=== PATIENT | male | born 1960 | race Caucasian/White ===

== ENCOUNTER 2016-05-18 13:00 | Day surgery (SDC) | payer BC ==
[2016-05-18] MEDS ORDERED: PROPOFOL 10 MG/ML VIAL IV ONE (14:00)
[2016-05-18] MEDS ORDERED: MIDAZOLAM HCL 2MG/2ML VIAL IV ONE (14:00)
[2016-05-18] MEDS ORDERED: LIDOCAINE 2% MDV (20MG/ML) 20ML VIAL IV ONE (14:00)
--- NOTE | 2016-05-22 15:39 | Operative Note ---
DATE OF SURGERY: 05/18/2016. REFERRING PHYSICIAN: Eleazar Del Valle D.O. PROCEDURE: Colonoscopy to the cecum. INDICATION: Colorectal cancer screening. ANESTHESIA: Intravenous sedation was administered by the Department of Anesthesiology and included Diprivan titrated to effect. PROCEDURE: Following informed consent from this alert individual, including a discussion of the risks and benefits of the procedure and an opportunity for the patient to ask questions, the patient was in the left lateral decubitus position. A digital rectal examination was performed. No abnormalities were noted. Following this, the Olympus PCF-180 video colonoscope was inserted into the rectum without resistance. The rectal mucosa had a normal appearance with normal folds and distensibility. The colonoscope was advanced up through the colon to the level of the cecum without much difficulty. Throughout the bowel, the mucosa appeared normal, folds were normal, and the bowel was fairly distensible. There were scattered diverticula noted in the sigmoid colon. The cecum was well defined by noting the appendiceal orifice and ileocecal valve. The terminal ileum was briefly cannulated as well and was found to be unremarkable. The colon preparation was good. From the base of the cecum, the colonoscope was then withdrawn. No additional abnormalities were detected until the rectum was reached. Retroflexion in the rectum revealed moderate- sized internal hemorrhoids. The endoscope was straightened and removed. The patient tolerated the procedure well and was returned to the recovery area in stable condition. IMPRESSION: 1. Sigmoid diverticulosis, mild. 2. Medium-sized internal hemorrhoids. RECOMMENDATIONS: The patient was advised to have a screening colonoscopy in ten years' time or sooner if problems arise. Follow up will be with Dr. Marcus Del Valle. MIGDALIA VANG D.O. Date Time JOB NUMBER: [id number] cc: Mariela Reyes
== END 2016-05-18 15:00 | disposition home or self-care (01) ==
LOC: HOP 13:00
PROVIDERS: ATTEND Internal Medicine Gastroenterology
DX: Z12.11 Encounter for screening for malignant neoplasm of colon (principal); K57.30 Diverticulosis of large intestine without perforation or abscess without bleeding; K64.8 Other hemorrhoids; I10 Essential (primary) hypertension

== ENCOUNTER 2017-08-30 16:24 | Emergency (ER) | payer BC ==
[2017-08-30] MEDS ORDERED: PROCHLORPERAZINE 10 MG/2 ML VIAL IVP PRN (17:14)
[2017-08-30] MEDS ORDERED: DIPHENHYDRAMINE HCL 50 MG/ML VIAL IVP ONE (17:15)
--- NOTE | 2017-08-30 17:51 | Emergency Department Record ---
History of Present Illness - General Chief Complaint: Headache Migraine Stated Complaint: HEADACHE Time Seen by Provider: 08/30/17 16:55 Source: Patient Mode of Arrival: Wheelchair Limitations: No limitations - History of Present Illness Initial Comments: Pt with from home with complaint of ASKEW for one week. Constant but varies in intesnity. Retrobulbar bilateral with pressure behind eyes. Scalp feels tingles. Subjective fever "every night". Taking tylenol with minimal relef of pain. Eyes are "hard to focus", no photophobia. +nausea without vomiting. No hx of migraine, non smoker, no temporal pains. No change in taste or facial sensation. No neck or back pains. No change in speech. No weakness. Not a "ASKEW " patient. MD Complaint: Headache Onset/Timin -: Days(s) Onset Description: Sudden Location: Diffuse, Frontal, Retro-orbital Severity: Moderate Severity scale (1-10): 6 Quality: Aching, Throbbing, Different than previous headaches Consistency: Constant Improves With: Nothing Worsens With: None, Light Associated Symptoms: Fever, Nausea, Photophobia, Sensitivity to sound Treatments Prior to Arrival: None - Related Data Allergies Allergy/AdvReac Type Severity Reaction Status Date / Time No Known Drug Allergies Allergy Unverified 08/30/17 15:43 Travel Screening - Travel/Exposure Within Last 30 Days Have you traveled within the last 30 days?: No Past Medical History - SOCIAL HISTORY Smoking Status: Never smoker Alcohol Use: None Drug Use: None - RESPIRATORY Hx Respiratory Disorders: No - CARDIOVASCULAR Hx Cardio Disorders: Yes Hx Hypertension: Yes - NEURO Hx Neuro Disorders: No - GI Hx GI Disorders: No - Hx Genitourinary Disorders: Yes Hx Kidney Stones: Yes (10 years ago) - ENDOCRINE Hx Endocrine Disorders: No - MUSCULOSKELETAL Hx Musculoskeletal Disorders: No - PSYCH Hx Psych Problems: No - HEMATOLOGY/ONCOLOGY Hx Hematology/Oncology Disorders: No Family Medical History Any Significant Family History?: No Course Vital Signs 08/30/17 16:39 Temperature 99.0 F Pulse Rate 83 Respiratory 20 Rate Blood Pressure 158/101 Pulse Ox 97 - Reevaluation(s) Reevaluation #1: 08/30/17 19:10 Pt without relief fro mCompazine/benadryl. Temp 100.2 po. Given Dilaudid 1mg with total relief of ASEKW. Up in room without pain. Discussed at length with patient and importance of follow up with PMD> If not 100% better in AM they will recheck here with me. The agree and are comfortable with that plan. Disposition Disposition: Discharge Clinical Impression: Headache, Elevated blood pressure reading Disposition: Home, Self-Care Condition: (2) Stable Instructions: Acute Headache (ED) Additional Instructions: Continue your Augmentin for the Dog Bite til complete. Recheck your blood pressure tomorrow with you family doctor tomorrow. If your headache continues or worse tomorrow return to see Dr. Campa in the ER. Take tylenol or Motrin as needed for headache. Forms: Patient Portal Access Quality - Quality Measures Quality Measures: Headache (All Ages) - Headache: Neuroimaging Quality Measure: Measure #419: Overuse of Neuroimaging Neurological Exam: Patient had a normal neurological exam. [G9535] Headache: Use of Neuroimaging: CTA, CT, MRA or MRI Ordered w/Medical Reason [ G9536] Medical Reason for Exam: Change in Type of Headache - Blood Pressure Screening Does Patient Have Any of the Following: No Blood Pressure Classification: Hypertensive Reading Systolic Measurement: 158 Diastolic Measurement: 101 Screening for High Blood Pressure: < Pre-Hypertensive BP, F/U Documented > [ G8950] Pre-Hypertensive Follow-up Interventions: Lifestyle modifications., Referral to alternative/primary care provider. Lifestyle Modification: Dietary Sodium Restriction
[2017-08-30] MEDS ORDERED: HYDROMORPHONE HCL 2 MG/ML VIAL IVP ONE (18:33)
[2017-08-30] MEDS ORDERED: ACETAMINOPHEN 500 MG TABLET PO ONE (18:33)
--- NOTE | 2017-08-31 20:22 | CT SCAN REPORT ---
EXAM: CT SCAN HEAD WO CONTRAST TECHNIQUE: Standard noncontrast axial images with coronal and sagittal postprocessed images obtained. INDICATION: Headache. COMPARISONS: None. ENCOUNTER: Initial. RIGHT OR LEFT HANDED: Unknown. FINDINGS: The calvarium displays no evidence of soft tissue swelling or hematoma. The calvarium displays no evidence of fracture. I do not see bony destructive process or periosteal reactions. I do not see evidence of abnormal extraaxial fluid collections to suggest hemorrhage. I do not see evidence of mass, mass effect, or midline shift. The white matter/ black matter junctions appear intact. There is no evidence of intraventricular blood or subarachnoid blood. There is mild tortuosity of the basilar artery. There is atherosclerosis of the intracranial circulation. The venous sinuses display no evidence of expansion or asymmetric hyperattenuation. I do not see evidence of asymmetric hypoattenuation to suggest acute infarction. IMPRESSIONS: I DO NOT SEE ACUTE PROCESS WITHIN THE BRAIN. NO EVIDENCE OF MASS, HEMORRHAGE, OR EDEMA. IF THERE IS STRONG CLINICAL CONCERN FOR SUBTLE INFARCT OR OTHER ACUTE PROCESS, MRI EXAMINATION IS ADVISED. JOB NUMBER: [id number] [facility]
== END 2017-08-30 19:27 | disposition home or self-care (01) ==
LOC: ER 16:24
DX: R51 Headache (principal); I10 Essential (primary) hypertension; R11.0 Nausea; R50.9 Fever, unspecified; R20.2 Paresthesia of skin
CPT/HCPCS: 99284 ×2; 96374; 96375; 70450; J1170; J0780; J1200

== ENCOUNTER 2017-09-17 18:53 | Observation (INO) | payer BC ==
[2017-09-17] MEDS ORDERED: ONDANSETRON HCL IV 4 MG/2 ML VIAL IVP ONE (19:10)
[2017-09-17] MEDS ORDERED: 0.9 % SODIUM CHLORIDE 1000ML 1,000 ML IV SCH (19:15)
--- NOTE | 2017-09-17 19:15 | Emergency Department Record ---
History of Present Illness - General Stated complaint: VOMITING Time Seen by Provider: 09/17/17 19:10 Source: Patient Mode of Arrival: Ambulatory Limitations: No limitations - History of Present Illness Initial comments: 56 yo male presents to ED for evaluation of nausea/vomiting for approximately 1 week following release from [facility] following treatment for viral meningitis. Patient denies fevers, chills, or abdominal pain symptoms, but does report mild headache symptoms (3.5/10 currently). Patient reports that he had been taking phenergan without improvement in his symptoms. Patient reports that he is concerned about possible dehydration. MD complaint: Nausea, Vomiting Onset/Timin -: Week(s) Description of Vomiting: Bilious Associated Abdominal Pain: No Radiation: None Severity: Moderate Consistency: Intermittent Improves with: None Worsens with: Eating Associated Symptoms: Denies other symptoms - Related Data Home Medications Medication Instructions Recorded Confirmed Last Taken Chlorthalidone 25 mg PO DAILY 09/17/17 09/17/17 09/17/17 Allergies Allergy/AdvReac Type Severity Reaction Status Date / Time No Known Drug Allergies Allergy Unverified 08/30/17 15:43 Review of Systems Constitutional: Denies: Chills, Fever, Malaise, Night sweats Eyes: Denies: Eye discharge, Eye pain ENT: Denies: Congestion, Ear pain, Epistaxis Respiratory: Denies: Cough, Dyspnea Cardiovascular: Denies: Chest pain, Dyspnea on exertion Endocrine: Denies: Fatigue, Heat or cold intolerance Gastrointestinal: Reports: Nausea, Vomiting. Denies: Abdominal pain Genitourinary: Denies: Incontinence, Retention Musculoskeletal: Denies: Arthralgia, Back pain, Gout, Joint swelling Skin: Denies: Bruising, Change in color Neurological: Reports: Headache. Denies: Abnormal gait, Confusion, Seizure Psychiatric: Denies: Anxiety Hematological/Lymphatic: Denies: Anemia, Blood Clots Past Medical History - SOCIAL HISTORY Smoking Status: Never smoker Drug Use: None - RESPIRATORY Hx Respiratory Disorders: No - CARDIOVASCULAR Hx Cardio Disorders: Yes Hx Hypertension: Yes - NEURO Hx Neuro Disorders: No - GI Hx GI Disorders: No - Hx Genitourinary Disorders: Yes Hx Kidney Stones: Yes (10 years ago) - ENDOCRINE Hx Endocrine Disorders: No - MUSCULOSKELETAL Hx Musculoskeletal Disorders: No - PSYCH Hx Psych Problems: No - HEMATOLOGY/ONCOLOGY Hx Hematology/Oncology Disorders: No Physical Exam - General General Appearance: Alert, Oriented x3, Cooperative, Moderate distress Limitations: No limitations - Head Head exam: Atraumatic, Normocephalic, Normal inspection Head exam detail: negative: Abrasion, Contusion, Lee's sign, General tenderness, Hematoma, Laceration - Eye Eye exam: Normal appearance. negative: Conjunctival injection, Periorbital swelling, Periorbital tenderness, Scleral icterus - ENT Ear exam: negative: Auricular hematoma, Auricular trauma Nasal Exam: negative: Active bleeding, Discharge, Dried blood, Foreign body Mouth exam: negative: Drooling, Laceration, Muffled voice, Tongue elevation - Neck Neck exam: Normal inspection, Other (No meningeal signs on examination.). negative: Meningismus, Tenderness - Respiratory Respiratory exam: Normal lung sounds bilaterally. negative: Rales, Respiratory distress, Rhonchi, Stridor - Cardiovascular Cardiovascular Exam: Regular rate, Normal rhythm, Normal heart sounds - GI/Abdominal GI/Abdominal exam: Soft. negative: Rebound, Rigid, Tenderness - Rectal Rectal exam: Deferred - exam: Deferred - Extremities Extremities exam: Normal inspection. negative: Calf tenderness, Pedal edema, Tenderness - Back Back exam: Denies: CVA tenderness (R), CVA tenderness (L) - Neurological Neurological exam: Alert, Normal gait, Oriented X3 - Psychiatric Psychiatric exam: Normal affect, Normal mood - Skin Skin exam: Normal color. negative: Abrasion Type of lesion: negative: abrasion Course - Reevaluation(s) Reevaluation #1: 09/17/17 20:32 Labs reviewed: K 2.5 Na 126 CL 83 Patient was updated on all results, reports improvement in his nausea/vomiting symptoms as well following Zofran. IV and oral potassium were ordered as well as 2 grams Magnesium. Will admit for further evaluation. Case was discussed with Majo (admitting PA) will accept admission at this time. Medical Decision Making - Lab Data Result diagrams: 09/17/17 19:30 09/17/17 19:30 Disposition Disposition: Admit Clinical Impression: Hypokalemia Nausea & vomiting Qualifiers: Vomiting type: unspecified Vomiting Intractability: non-intractable Qualified Code(s): R11.2 - Nausea with vomiting, unspecified Disposition: / Decision to Admit: Admit from ER Decision to Admit Date: 09/17/17 Decision to Admit Time: 20:36 Condition: (2) Stable Time of Disposition: 20:36 Quality - Quality Measures Quality Measures: N/A - Blood Pressure Screening Does Patient Have Any of the Following: No Blood Pressure Classification: Hypertensive Reading Systolic Measurement: 160 Diastolic Measurement: 96 Screening for High Blood Pressure: < First Hypertensive BP, F/U Documented > [ G8950] First Hypertensive Follow-up Interventions: Referral to alternative/primary care provider.
[2017-09-17 19:48] LABS: BASO % 0.2 % (0-6); GRAN % 75.8 % (47-80); HEMATOCRIT 43.4 % (42.0-52.0); HEMOGLOBIN 15.6 gm/dl (14.0-18.0); LYMPH % 10.4 % (16-45); MEAN CELL VOLUME 82.7 fl (81-97); MEAN CORPUSCULAR HEMOGLOBIN 29.7 pg (27-33); MEAN CORPUSCULAR HGB CONC 35.9 g/dl (32-36); MEAN PLATELET VOLUME 9.3 fl (7.4-10.4); MONO % 12.6 % (0-9); PLATELET COUNT 359 K/uL (130-400); RED BLOOD COUNT 5.25 M/uL (4.40-5.70); RED CELL DISTRIBUTION WIDTH 12.8 % (11.5-14.5)
[2017-09-17 20:03] LABS: URINE APPEARANCE CLEAR; URINE BILIRUBIN NEGATIVE (NEGATIVE); URINE BLOOD NEGATIVE (NEGATIVE); URINE COLOR YELLOW; URINE GLUCOSE (UA) NEGATIVE (NEGATIVE); URINE KETONE NEGATIVE (NEGATIVE); URINE LEUKOCYTE ESTERASE NEGATIVE (NEGATIVE); URINE NITRITE NEGATIVE (NEGATIVE); URINE PROTEIN NEGATIVE (NEGATIVE)
[2017-09-17 20:06] LABS: BLOOD UREA NITROGEN 14 mg/dL (6-20); CREATININE 0.8 mg/dL (0.7-1.2); EST GLOMERULAR FILTRATION RATE > 60 mL/min
[2017-09-17 20:08] LABS: GLUCOSE,RANDOM 144 mg/dL (74-109)
[2017-09-17 20:11] LABS: ALB/GLOB RATIO 1.8 (1.1-1.8); ALBUMIN 4.5 g/dL (4.0-5.0); ALKALINE PHOSPHATASE 79 U/L (40-129); ALT/SGPT 22 U/L (<41); AST/SGOT 10 U/L (10.0-50.0); LIPASE 73 U/L (13-60)
[2017-09-17] MEDS ORDERED: SOD CHLOR 0.9% WITH KCL 40MEQ 40 MEQ/1,000 ML IV.SOLN IV ONE (20:28)
[2017-09-17] MEDS ORDERED: POTASSIUM BICARB./CIT AC 25 MEQ EFF.TAB PO STA (20:28)
[2017-09-17] MEDS ORDERED: MAGNESIUM SULFATE 16 MEQ in 0.9 % SODIUM CHLORIDE 100ML 100 ML IV ONE (20:28)
[2017-09-17] MEDS ORDERED: 0.9 % SODIUM CHLORIDE 1000ML 1,000 ML IV PRN (22:24)
[2017-09-17] MEDS ORDERED: ONDANSETRON HCL IV 4 MG/2 ML VIAL IVP PRN (22:24)
[2017-09-18] MEDS: ACETAMINOPHEN 500 MG TABLET PO PRN ×2 (01:14→09:16)
[2017-09-18 06:55] LABS: BLOOD UREA NITROGEN 11 mg/dL (6-20); CREATININE 0.8 mg/dL (0.7-1.2); EST GLOMERULAR FILTRATION RATE > 60 mL/min; GLUCOSE,RANDOM 93 mg/dL (74-109)
[2017-09-18] MEDS ORDERED: CHLORTHALIDONE 25 MG TABLET PO SCH (10:00)
[2017-09-18] MEDS ORDERED: ONDANSETRON 4 MG ODT TABLET SL PRN (11:16)
--- NOTE | 2017-09-18 11:27 | History & Physical ---
History of Present Illness - Date of Service Date of Service for History & Physical: 09/18/17 - History of Present Illness Admitting Diagnosis: Nausea/Vomiting. Severe hypokalemia History of Present Illness: Mr. Frias is a 56 year-old male who presented to the ED on 09/16/17 with complaint of nausea and vomiting that had persisted for 1 week following release from [facility] where he was admitted for viral meningitis. He states that he had been feeling ill since 08/26/27 and lost 28 pounds. Patient denied fevers, chills, or abdominal pain symptoms, but did report mild headache symptoms (3.5/10). Patient reported that he had been taking phenergan without improvement in his symptoms. His history includes recent viral meningitis infection, HTN, and renal stone 10 years ago. In the ED, his vital signs were stable. His labs revealed K 2.5, Na 126, Cl 83. 16gm of mag sulfate and 50 mEq of K-lyte was initiated in the ED, and pt. was started on K Cloride 40 mEq at 125/hr. His nausea improved with IV zofran. Pt. was admitted for observation for rehydration and electrolyte replacement. 09/18/17 0930: Pt. is resting in bed. He reports feeling much improved since yesterday. He does complain of a headache- 3/10, but he states that his headache is unchanged from previous. (same since discharge with viral meningitis diagnosis)- treating with PO tylenol. His vitals remain stable and his labs have significantly improved: K 3.7 and Na 130. He remains in NSR on tele. Will plan to continue IV fluids and recheck labs at 1200, including a magnesium level. Zofran changed to PO and will advance to full liquid for lunch. Will consider d/c this afternoon if labs within normal range and pt's nausea controlled, tolerating advancing diet. Travel Screening - Travel/Exposure Within Last 30 Days Have you traveled within the last 30 days?: No - Travel/Exposure Within Last Year Have you traveled outside the [place] in the last year?: No - Additonal Travel Details Have you been exposed to anyone with a communicable illness?: No - Travel Symptoms Symptom Screening: None Review of Systems Constitutional: Denies: Chills, Fever, Malaise, Night sweats Eyes: Denies: Eye discharge, Eye pain ENT: Denies: Congestion, Ear pain, Epistaxis Respiratory: Denies: Cough, Dyspnea Cardiovascular: Denies: Chest pain, Dyspnea on exertion Endocrine: Denies: Fatigue, Heat or cold intolerance Gastrointestinal: Reports: Nausea, Vomiting. Denies: Abdominal pain Genitourinary: Denies: Incontinence, Retention Musculoskeletal: Denies: Arthralgia, Back pain, Gout, Joint swelling Skin: Denies: Bruising, Change in color Neurological: Reports: Headache. Denies: Abnormal gait, Confusion, Seizure Psychiatric: Denies: Anxiety Hematological/Lymphatic: Denies: Anemia, Blood Clots Past Medical History - SOCIAL HISTORY Smoking Status: Never smoker Alcohol Use: None Drug Use: None - RESPIRATORY Hx Respiratory Disorders: No - CARDIOVASCULAR Hx Cardio Disorders: Yes Hx Hypertension: Yes - NEURO Hx Neuro Disorders: No - GI Hx GI Disorders: No - Hx Genitourinary Disorders: Yes Hx Kidney Stones: Yes (10 years ago) - ENDOCRINE Hx Endocrine Disorders: No - MUSCULOSKELETAL Hx Musculoskeletal Disorders: No - PSYCH Hx Psych Problems: No - HEMATOLOGY/ONCOLOGY Hx Hematology/Oncology Disorders: No Family Medical History Any Significant Family History?: No H&P Meds/Allergies - Allergies Allergies: Allergies Allergy/AdvReac Type Severity Reaction Status Date / Time No Known Drug Allergies Allergy Unverified 08/30/17 15:43 - Home Medications Home Medications Medication Instructions Recorded Confirmed Last Taken Chlorthalidone 25 mg PO DAILY 09/17/17 09/17/17 09/17/17 - Active Medications Active Medications: Current Medications Acetaminophen (Tylenol 500mg Tab) 1,000 mg PO Q6H PRN PRN Reason: PAIN - MILD(1-4)/FEVER Last Admin: 09/18/17 09:16 Dose: 1,000 mg Chlorthalidone (Chlorthalidone) 25 mg PO DAILY CRYSTAL Sodium Chloride () 1,000 mls @ 100 mls/hr IV .Q10H PRN PRN Reason: LARGE VOLUME IV Last Admin: 09/18/17 06:15 Dose: 100 mls/hr Ondansetron HCl (Zofran Odt) 4 mg SL Q8H PRN PRN Reason: NAUSEA/VOMITING Physical Exam - Vital Signs Vital Signs: Vital Signs - Last 24 Hrs Temp Pulse Pulse Pulse Resp BP BP 09/18/17 09:35 98.4 F 70 16 09/18/17 09:00 60 16 07/28/18 06:24 97.7 F 53 L 58 L 12 09/18/17 00:02 69 16 09/17/17 22:24 98.2 F 69 16 09/17/17 21:52 68 16 133/94 09/17/17 20:38 62 16 09/17/17 19:17 97.9 F 65 16 160/96 09/17/17 19:14 97.9 F 67 16 160/96 BP Pulse Ox 09/18/17 09:35 128/84 96 09/18/17 09:00 09/18/17 06:24 124/86 98 09/18/17 00:02 09/17/17 22:24 149/95 95 09/17/17 21:52 98 09/17/17 20:38 150/101 98 09/17/17 19:17 97 09/17/17 19:14 98 - General General Appearance: Alert, Oriented x3, Cooperative, No acute distress Limitations: No limitations - Head Head exam: Atraumatic, Normocephalic, Normal inspection Head exam detail: negative: Abrasion, Contusion, Lee's sign, General tenderness, Hematoma, Laceration - Eye Eye exam: Normal appearance. negative: Conjunctival injection, Periorbital swelling, Periorbital tenderness, Scleral icterus - ENT Ear exam: negative: Auricular hematoma, Auricular trauma Nasal Exam: negative: Active bleeding, Discharge, Dried blood, Foreign body Mouth exam: negative: Drooling, Laceration, Muffled voice, Tongue elevation - Neck Neck exam: Normal inspection, Other (No meningeal signs on examination.). negative: Meningismus, Tenderness - Respiratory Respiratory exam: Normal lung sounds bilaterally. negative: Rales, Respiratory distress, Rhonchi, Stridor - Cardiovascular Cardiovascular Exam: Regular rate, Normal rhythm, Normal heart sounds - GI/Abdominal GI/Abdominal exam: Soft. negative: Rebound, Rigid, Tenderness - Rectal Rectal exam: Deferred - exam: Deferred - Extremities Extremities exam: Normal inspection. negative: Calf tenderness, Pedal edema, Tenderness - Back Back exam: Denies: CVA tenderness (R), CVA tenderness (L) - Neurological Neurological exam: Alert, Normal gait, Oriented X3 - Psychiatric Psychiatric exam: Normal affect, Normal mood - Skin Skin exam: Normal color. negative: Abrasion Type of lesion: negative: abrasion Results - Labs Result Diagrams: 09/17/17 19:30 09/18/17 06:10 Labs Last 24 Hours: Laboratory Results - last 24 hr 09/17/17 09/17/17 09/17/17 19:10 19:30 19:30 WBC 9.0 RBC 5.25 Hgb 15.6 Hct 43.4 MCV 82.7 MCH 29.7 MCHC 35.9 RDW 12.8 Plt Count 359 MPV 9.3 Gran % 75.8 Lymphocytes % 10.4 L Monocytes % 12.6 H Eosinophils % 1.0 Basophils % 0.2 Sodium 126 L Potassium 2.5 L* Chloride 83 L Carbon Dioxide 28.0 Anion Gap 15.0 BUN 14 Creatinine 0.8 Estimated GFR > 60 Random Glucose 144 H Calcium 9.3 Total Bilirubin 0.60 AST 10 ALT 22 Alkaline Phosphatase 79 Total Protein 7.0 Albumin 4.5 Globulin 2.5 Albumin/Globulin Ratio 1.8 Lipase 73 H Urine Color Yellow Urine Appearance Clear Urine pH 6.0 Ur Specific [place] 1.015 Urine Protein Negative Urine Glucose (UA) Negative Urine Ketones Negative Urine Blood Negative Urine Nitrite Negative Urine Bilirubin Negative Urine Urobilinogen 1.0 Ur Leukocyte Esterase Negative 09/18/17 09/18/17 06:00 06:10 WBC RBC Hgb Hct MCV MCH MCHC RDW Plt Count MPV Gran % Lymphocytes % Monocytes % Eosinophils % Basophils % Sodium Cancelled 135 L Potassium Cancelled 3.7 Chloride Cancelled 96 L Carbon Dioxide Cancelled 26.0 Anion Gap Cancelled 13.0 BUN Cancelled 11 Creatinine Cancelled 0.8 Estimated GFR Cancelled > 60 Random Glucose Cancelled 93 Calcium Cancelled 8.8 Total Bilirubin AST ALT Alkaline Phosphatase Total Protein Albumin Globulin Albumin/Globulin Ratio Lipase Urine Color Urine Appearance Urine pH Ur Specific [place] Urine Protein Urine Glucose (UA) Urine Ketones Urine Blood Urine Nitrite Urine Bilirubin Urine Urobilinogen Ur Leukocyte Esterase VTE H&P Assessment - Risk for VTE Risk for VTE: Yes Risk Level: Low Risk Assessment Date: 09/18/17 Risk Assessment Time: 11:28 VTE Orders Placed or Will Be Placed: Yes Plan - Detailed Diagnosis and Plan (1) Hypokalemia Current Visit: Yes Status: Acute Base Code: E87.6 - HYPOKALEMIA Comment: : -K of 2.5 in ED, replaced with 50mEq K-lyte and started on IVF- K Cloride with 40mEq at 125/hr -K was 3.7 this morning, will recheck again at 1200 and added mag to lab order -NSR on tele (2) Nausea & vomiting Current Visit: Yes Status: Acute Qualifiers: Vomiting type: unspecified Vomiting Intractability: non-intractable Qualified Code(s): R11.2 - Nausea with vomiting, unspecified Base Code: R11.2 - NAUSEA WITH VOMITING, UNSPECIFIED Comment: 09/18/17: -Nausea controlled with 4mg IV zofran, will change to PO zofran and advance from clear liquid diet to full liquid (3) At risk for deep venous thrombosis Current Visit: Yes Status: Acute Base Code: Z91.89 - OTH PERSONAL RISK FACTORS, NOT ELSEWHERE CLASSIFIED Comment: 09/18/17: -Low risk for DVT, mobility not impaired at this time, will order prophylaxis if admission greater than 24 hours (4) Full code status Current Visit: Yes Status: Acute Base Code: Z78.9 - OTHER SPECIFIED HEALTH STATUS Comment: 09/18/17: -Pt. is a full code
[2017-09-18] MEDS ORDERED: KETOROLAC 30 MG/ML VIAL IVP ONE (12:13)
[2017-09-18 14:30] LABS: BLOOD UREA NITROGEN 10 mg/dL (6-20); CREATININE 0.8 mg/dL (0.7-1.2); EST GLOMERULAR FILTRATION RATE > 60 mL/min; GLUCOSE,RANDOM 130 mg/dL (74-109)
--- NOTE | 2017-09-18 14:49 | Discharge Summary ---
Providers Discharge Summary Date: 09/18/17 Date of admission: 09/17/17 21:51 Expected Date of Discharge: 09/18/17 Attending physician: FREYA COLE Primary care physician: MORIS MARQUEZ D.O. Physical Exam - Vital Signs Vital Signs: Vital Signs - Last 24 Hrs Temp Pulse Pulse Pulse Resp BP BP 09/18/17 09:35 98.4 F 70 16 09/18/17 09:00 60 16 09/18/17 06:24 97.7 F 53 L 58 L 12 09/18/17 00:02 69 16 09/17/17 22:24 98.2 F 69 16 09/17/17 21:52 68 16 133/94 09/17/17 20:38 62 16 09/17/17 19:17 97.9 F 65 16 160/96 09/17/17 19:14 97.9 F 67 16 160/96 BP Pulse Ox 09/18/17 09:35 128/84 96 09/18/17 09:00 09/18/17 06:24 124/86 98 09/18/17 00:02 09/17/17 22:24 149/95 95 09/17/17 21:52 98 09/17/17 20:38 150/101 98 09/17/17 19:17 97 09/17/17 19:14 98 - General General Appearance: Alert, Oriented x3, Cooperative, No acute distress Limitations: No limitations - Head Head exam: Atraumatic, Normocephalic, Normal inspection Head exam detail: negative: Abrasion, Contusion, Lee's sign, General tenderness, Hematoma, Laceration - Eye Eye exam: Normal appearance. negative: Conjunctival injection, Periorbital swelling, Periorbital tenderness, Scleral icterus - ENT Ear exam: negative: Auricular hematoma, Auricular trauma Nasal Exam: negative: Active bleeding, Discharge, Dried blood, Foreign body Mouth exam: negative: Drooling, Laceration, Muffled voice, Tongue elevation - Neck Neck exam: Normal inspection, Other (No meningeal signs on examination.). negative: Meningismus, Tenderness - Respiratory Respiratory exam: Normal lung sounds bilaterally. negative: Rales, Respiratory distress, Rhonchi, Stridor - Cardiovascular Cardiovascular Exam: Regular rate, Normal rhythm, Normal heart sounds - GI/Abdominal GI/Abdominal exam: Soft. negative: Rebound, Rigid, Tenderness - Rectal Rectal exam: Deferred - exam: Deferred - Extremities Extremities exam: Normal inspection. negative: Calf tenderness, Pedal edema, Tenderness - Back Back exam: Denies: CVA tenderness (R), CVA tenderness (L) - Neurological Neurological exam: Alert, Normal gait, Oriented X3 - Psychiatric Psychiatric exam: Normal affect, Normal mood - Skin Skin exam: Normal color. negative: Abrasion Type of lesion: negative: abrasion Hospitalization - Hospitalization Admission Diagnosis: Nausea/Vomiting. Severe hypokalemia - Problem List/Discharge Diagnosis (1) Hypokalemia Current Visit: Yes Status: Acute Base Code: E87.6 - HYPOKALEMIA Comment: : -K of 2.5 in ED, replaced with 50mEq K-lyte and started on IVF- K Cloride with 40mEq at 125/hr -Repeat K 2.5, Mag 2.3, will discharge home with instructions on how to maintain dietary consumption of potassium (2) Nausea & vomiting Current Visit: Yes Status: Acute Discharge Diagnosis: Vomiting type: unspecified Vomiting Intractability: non-intractable Qualified Code(s): R11.2 - Nausea with vomiting, unspecified Base Code: R11.2 - NAUSEA WITH VOMITING, UNSPECIFIED Comment: 09/18/17: -Nausea controlled PO zofan, pt. is tolerating advancing to full liquid diet (3) At risk for deep venous thrombosis Current Visit: Yes Status: Acute Base Code: Z91.89 - OTH PERSONAL RISK FACTORS, NOT ELSEWHERE CLASSIFIED Comment: 09/18/17: -Plan to d/c home and pt. to return to normal level of activty, no prophylaxis ordered for discharge (4) Full code status Current Visit: Yes Status: Acute Base Code: Z78.9 - OTHER SPECIFIED HEALTH STATUS Comment: 09/18/17: -Pt. is a full code - Hospitalization Course Disposition: Home, Self-Care Hospital Course: Mr. Frias is a 56 year-old male who presented to the ED on 09/16/17 with complaint of nausea and vomiting that had persisted for 1 week following release from [facility] where he was admitted for viral meningitis. He states that he had been feeling ill since 08/26/27 and lost 28 pounds. Patient denied fevers, chills, or abdominal pain symptoms, but did report mild headache symptoms (3.5/10). Patient reported that he had been taking phenergan without improvement in his symptoms. His history includes recent viral meningitis infection, HTN, and renal stone 10 years ago. In the ED, his vital signs were stable. His labs revealed K 2.5, Na 126, Cl 83. 16gm of mag sulfate and 50 mEq of K-lyte was initiated in the ED, and pt. was started on K Cloride 40 mEq at 125/hr. His nausea improved with IV zofran. Pt. was admitted for observation for rehydration and electrolyte replacement. 09/18/17 0930: Pt. is resting in bed. He reports feeling much improved since yesterday. He does complain of a headache- 3/10, but he states that his headache is unchanged from previous. (same since discharge with viral meningitis diagnosis)- treating with PO tylenol. His vitals remain stable and his labs have significantly improved: K 3.7 and Na 130. He remains in NSR on tele. Will plan to continue IV fluids and recheck labs at 1200, including a magnesium level. Zofran changed to PO and will advance to full liquid for lunch. Will consider d/c this afternoon if labs within normal range and pt's nausea controlled, tolerating advancing diet. 09/18/17 1430: Repeat BNP and Mag stable, nausea controlled with po zofran, pt. is tolerating advancing diet to full liquids. Will d/c home. Pt. instructed to follow up with PCP (Dr. Marquez) within 3-5 days. Procedures: Cardiology Procedures 09/18/17 01:27 Commutator Operator .Continuous Abnormal Labs: Abnormal Lab Results 09/17/17 09/17/17 09/18/17 Range/Units 19:30 19:30 06:10 Lymphocytes % 10.4 L (16-45) % Monocytes % 12.6 H (0-9) % Sodium 126 L 135 L (136-145) mmol/L Potassium 2.5 L* (3.4-4.5) mmol/L Chloride 83 L 96 L (98-107) mmol/L Random Glucose 144 H (74-109) mg/dL Lipase 73 H (13-60) U/L 09/18/17 Range/Units 12:39 Lymphocytes % (16-45) % Monocytes % (0-9) % Sodium 134 L (136-145) mmol/L Potassium (3.4-4.5) mmol/L Chloride 96 L (98-107) mmol/L Random Glucose 130 H (74-109) mg/dL Lipase (13-60) U/L Condition at Discharge: (2) Stable VTE Discharge VTE Reason For No Overlap Therapy: Not Indicated (mobility not impaired) Discharge Medications - Discharge Medications Prescriptions: Ondansetron [Zofran Odt] 4 mg SL Q8H PRN #21 tab.rapdis PRN Reason: Nausea/Vomiting Home Medications: Ambulatory Orders Chlorthalidone 25 mg PO DAILY 09/17/17 [Last Taken 09/17/17] Ondansetron [Zofran Odt] 4 mg SL Q8H PRN #21 tab.rapdis 09/18/17 [Last Taken Unknown] Discharge Plan - Discharge Instructions Activity at Discharge: Increase Activity as Tolerated Diet at Discharge: Regular Diet Instructions: Potassium Content of Foods List (DC), Hypokalemia (DC), Acute Nausea and Vomiting (DC) Additional Instructions: Zofran 4mg every 8 hours for nausea Follow up with your PCP within 3-5 days Return to the ED if your symptoms worsen, or if you develop any chest pain. Quality Measures - Quality Measures Quality Measures: Documentation of Current Medications in Medical Record, Screening for High Blood Pressure and F/U Documented - Current Medications Quality Measure: Measure #130: Documentation of Current Medications Documentation of Current Medications: <Current Medications Documented/Reviewed> [G8427] - Blood Pressure Screening Quality Measure: Screening for High Blood Pressure and Follow-Up Documented Does Patient Have Any of the Following: Active Dx of HTN Blood Pressure Classification: Hypertensive Reading Systolic Measurement: 133 Diastolic Measurement: 94 Screening for High Blood Pressure: Patient Exclusion, Hx of HTN [G9744] - Elder Abuse Suspicion Index EASI Reference Information: Alonzo MONTEJO, Colby C, Azalia D, Jose Olea.Development and validation of a tool to assist physicians identification of elder abuse: The Elder Abuse Suspicion Index (EASI ). Journal of Elder Abuse and Neglect, 2008; 20 (3): 276-300.
== END 2017-09-18 15:35 | disposition home or self-care (01) ==
LOC: ER 18:53 → MEDSURG 21:51
PROVIDERS: ADMIT Internal Medicine; ATTEND Internal Medicine
DX: E87.6 Hypokalemia (principal); R19.7 Diarrhea, unspecified; R51 Headache; Z86.61 Personal history of infections of the central nervous system; Z87.442 Personal history of urinary calculi
CPT/HCPCS: 80048; 80053; 81003; 83690; 83735; 85025; 96365; 96366; 96374; 99223; 99285; J1885; J2405; J7030

== ENCOUNTER 2018-09-14 20:53 | Emergency (ER) | payer BC ==
[2018-09-14] MEDS ORDERED: HYDROCODONE/APAP 5/325MG TABLET PO ONE ×2 (21:17→22:10)
--- NOTE | 2018-09-14 21:55 | Emergency Department Record ---
History of Present Illness - General Chief complaint: Extremity Problem Stated complaint: LT INJURY Time Seen by Provider: 09/14/18 21:12 Source: Patient Mode of Arrival: Ambulatory Limitations: No limitations - History of Present Illness Initial comments: pt fell on an outstretched hand when trying to get away from the neighbors dog Complaint: Extremity pain, Extremity swelling Onset/Timin -: Hour(s) Location: Left History of Same: No Radiation: Distal Severity scale (1-10): 8 Quality: Aching Consistency: Constant Improves with: Cold therapy, Elevation, Rest Worsens with: Exertion, Palpation, Other Associated Symptoms: Denies other symptoms - Related Data Previous Rx's Medication Instructions Recorded Hydrocodone/Acetaminophen [[place] 1 each PO Q6HR #10 tablet 09/14/18 5-325 Tablet] Allergies Allergy/AdvReac Type Severity Reaction Status Date / Time No Known Drug Allergies Allergy Unverified 09/14/18 21:05 Travel Screening - Travel/Exposure Within Last 30 Days Have you traveled within the last 30 days?: No - Travel Symptoms Symptom Screening: None Review of Systems Reviewed: No additional complaints except as noted below Constitutional: Reports: As per HPI. Denies: Chills, Fever, Malaise, Night sweats, Weakness, Weight change Eyes: Reports: As per HPI. Denies: Eye discharge, Eye pain, Photophobia, Vision change ENT: Reports: As per HPI. Denies: Congestion, Dental pain, Ear pain, Epistaxis, Hearing loss, Throat pain Respiratory: Reports: As per HPI. Denies: Cough, Dyspnea, Hemoptysis, Stridor, Wheezes Cardiovascular: Reports: As per HPI. Denies: Arrhythmia, Chest pain, Dyspnea on exertion, Edema, Murmurs, Orthopnea, Palpitations, Paroxysmal nocturnal dyspnea, Rheumatic Fever, Syncope Endocrine: Reports: As per HPI. Denies: Fatigue, Heat or cold intolerance, Polydipsia, Polyuria Gastrointestinal: Reports: As per HPI. Denies: Abdominal pain, Constipation, Diarrhea, Hematemesis, Hematochezia, Melena, Nausea, Vomiting Genitourinary: Reports: As per HPI. Denies: Dysuria, Frequency, Hematuria, Incontinence, Retention, Testicular pain, Testicular mass, Urgency Musculoskeletal: Reports: As per HPI. Denies: Arthralgia, Back pain, Gout, Joint swelling, Myalgia, Neck pain Skin: Reports: As per HPI. Denies: Bruising, Change in color, Change in hair/nails, Lesions, Pruritus, Rash Neurological: Reports: As per HPI. Denies: Abnormal gait, Confusion, Headache, Numbness, Paresthesias, Seizure, Tingling, Tremors, Vertigo, Weakness Psychiatric: Reports: As per HPI. Denies: Anxiety, Auditory hallucinations, Depression, Homicidal thoughts, Suicidal thoughts, Visual hallucinations Hematological/Lymphatic: Reports: As per HPI. Denies: Anemia, Blood Clots, Easy bleeding, Easy bruising, Swollen glands Past Medical History - SOCIAL HISTORY Smoking Status: Never smoker Alcohol Use: None Drug Use: None - RESPIRATORY Hx Respiratory Disorders: No - CARDIOVASCULAR Hx Cardio Disorders: Yes Hx Hypertension: Yes - NEURO Hx Neuro Disorders: Yes Comment:: viral meningitis - GI Hx GI Disorders: No - Hx Genitourinary Disorders: Yes Hx Kidney Stones: Yes (10 years ago) - ENDOCRINE Hx Endocrine Disorders: No - MUSCULOSKELETAL Hx Musculoskeletal Disorders: No - PSYCH Hx Psych Problems: No - HEMATOLOGY/ONCOLOGY Hx Hematology/Oncology Disorders: No Family Medical History Any Significant Family History?: No Family Hx Comment (NOT TO BE USED IN PLACE OF ITEMS BELOW): denies Physical Exam - General General Appearance: Alert, Oriented x3, Cooperative, Mild distress - Head Head exam: Normal inspection - Eye Eye exam: Normal appearance, PERRL, EOMI Pupils: Normal accommodation - ENT ENT exam: Normal exam, Mucous membranes moist, Normal external ear exam, Normal orophraynx Ear exam: Normal external inspection. negative: External canal tenderness Nasal Exam: Normal inspection. negative: Discharge, Sinus tenderness Mouth exam: Normal external inspection, Tongue normal Teeth exam: Normal inspection. negative: Dental caries Throat exam: Normal inspection. negative: Tonsillar erythema, Tonsillar exudate - Neck Neck exam: Normal inspection, Full ROM. negative: Tenderness - Respiratory Respiratory exam: Normal lung sounds bilaterally. negative: Respiratory distress - Cardiovascular Cardiovascular Exam: Regular rate, Normal rhythm, Normal heart sounds - GI/Abdominal GI/Abdominal exam: Soft, Normal bowel sounds. negative: Tenderness - Rectal Rectal exam: Deferred - exam: Deferred - Extremities Extremities exam: Normal capillary refill, Tenderness (left wrist with bony deformity). negative: Full ROM - Back Back exam: Reports: Normal inspection, Full ROM. Denies: Muscle spasm, Rash noted, Tenderness - Neurological Neurological exam: Alert, Normal gait, Oriented X3, Reflexes normal - Psychiatric Psychiatric exam: Normal affect, Normal mood - Skin Skin exam: Dry, Intact, Normal color, Warm Course Vital Signs 09/14/18 21:00 Temperature 97.8 F Pulse Rate [ 55 L Left] Respiratory 16 Rate Blood Pressure 126/87 [Right] Pulse Ox 98 - Reevaluation(s) Reevaluation #1: 09/14/18 22:37 d/w dr bruno Disposition Disposition: Discharge Clinical Impression: Colles' fracture Qualifiers: Encounter type: initial encounter Fracture type: closed Laterality: left Qualified Code(s): S52.532A - Colles' fracture of left radius, initial encounter for closed fracture Disposition: Home, Self-Care Condition: (1) Good Instructions: Wrist Fracture in Adults (ED) Additional Instructions: follow up with dr bruno on wednesday. call his office tomorrow. surgery is planned for wednesday. ice and elevate. motrin with food Prescriptions: Hydrocodone/Acetaminophen [[place] 5-325 Tablet] 1 each PO Q6HR #10 tablet Forms: Patient Portal Access Quality - Quality Measures Quality Measures: N/A - Blood Pressure Screening Does Patient Have Any of the Following: No Blood Pressure Classification: Pre-Hypertensive BP Reading Systolic Measurement: 126 Diastolic Measurement: 87 Screening for High Blood Pressure: < Pre-Hypertensive BP, F/U Documented > [G8950] Pre-Hypertensive Follow-up Interventions: Follow-up with rescreen every year.
--- NOTE | 2018-09-14 22:46 | Emergency Department Record ---
History of Present Illness - General Chief complaint: Extremity Problem Stated complaint: LT INJURY Time Seen by Provider: 09/14/18 21:12 Source: Patient Mode of Arrival: Ambulatory Limitations: No limitations - History of Present Illness Onset/Timin -: Hour(s) Location: Left History of Same: No Radiation: Distal Severity scale (1-10): 8 Quality: Aching Consistency: Constant Improves with: Cold therapy, Elevation, Rest Worsens with: Exertion, Palpation, Other Associated Symptoms: Denies other symptoms - Related Data Previous Rx's Medication Instructions Recorded Hydrocodone/Acetaminophen [[place] 1 each PO Q6HR #10 tablet 09/14/18 5-325 Tablet] Allergies Allergy/AdvReac Type Severity Reaction Status Date / Time No Known Drug Allergies Allergy Unverified 09/14/18 21:05 Travel Screening - Travel/Exposure Within Last 30 Days Have you traveled within the last 30 days?: No - Travel Symptoms Symptom Screening: None Review of Systems Constitutional: Reports: As per HPI. Denies: Chills, Fever, Malaise, Night sweats, Weakness, Weight change Eyes: Reports: As per HPI. Denies: Eye discharge, Eye pain, Photophobia, Vision change ENT: Reports: As per HPI. Denies: Congestion, Dental pain, Ear pain, Epistaxis, Hearing loss, Throat pain Respiratory: Reports: As per HPI. Denies: Cough, Dyspnea, Hemoptysis, Stridor, Wheezes Cardiovascular: Reports: As per HPI. Denies: Arrhythmia, Chest pain, Dyspnea on exertion, Edema, Murmurs, Orthopnea, Palpitations, Paroxysmal nocturnal dyspnea, Rheumatic Fever, Syncope Endocrine: Reports: As per HPI. Denies: Fatigue, Heat or cold intolerance, Polydipsia, Polyuria Gastrointestinal: Reports: As per HPI. Denies: Abdominal pain, Constipation, Diarrhea, Hematemesis, Hematochezia, Melena, Nausea, Vomiting Genitourinary: Reports: As per HPI. Denies: Dysuria, Frequency, Hematuria, Incontinence, Retention, Testicular pain, Testicular mass, Urgency Musculoskeletal: Reports: As per HPI. Denies: Arthralgia, Back pain, Gout, Joint swelling, Myalgia, Neck pain Skin: Reports: As per HPI. Denies: Bruising, Change in color, Change in hair/nails, Lesions, Pruritus, Rash Neurological: Reports: As per HPI. Denies: Abnormal gait, Confusion, Headache, Numbness, Paresthesias, Seizure, Tingling, Tremors, Vertigo, Weakness Psychiatric: Reports: As per HPI. Denies: Anxiety, Auditory hallucinations, Depression, Homicidal thoughts, Suicidal thoughts, Visual hallucinations Hematological/Lymphatic: Reports: As per HPI. Denies: Anemia, Blood Clots, Easy bleeding, Easy bruising, Swollen glands Past Medical History - SOCIAL HISTORY Smoking Status: Never smoker Alcohol Use: None Drug Use: None - RESPIRATORY Hx Respiratory Disorders: No - CARDIOVASCULAR Hx Cardio Disorders: Yes Hx Hypertension: Yes - NEURO Hx Neuro Disorders: Yes Comment:: viral meningitis - GI Hx GI Disorders: No - Hx Genitourinary Disorders: Yes Hx Kidney Stones: Yes (10 years ago) - ENDOCRINE Hx Endocrine Disorders: No - MUSCULOSKELETAL Hx Musculoskeletal Disorders: No - PSYCH Hx Psych Problems: No - HEMATOLOGY/ONCOLOGY Hx Hematology/Oncology Disorders: No Family Medical History Any Significant Family History?: No Family Hx Comment (NOT TO BE USED IN PLACE OF ITEMS BELOW): denies Physical Exam - General Limitations: No limitations Course Vital Signs 09/14/18 21:00 Temperature 97.8 F Pulse Rate [ 55 L Left] Respiratory 16 Rate Blood Pressure 126/87 [Right] Pulse Ox 98 Disposition Disposition: Discharge Clinical Impression: Colles' fracture Qualifiers: Encounter type: initial encounter Fracture type: closed Laterality: left Qualified Code(s): S52.532A - Colles' fracture of left radius, initial encounter for closed fracture Disposition: Home, Self-Care Condition: (1) Good Instructions: Wrist Fracture in Adults (ED) Additional Instructions: follow up with dr bruno on wednesday. call his office tomorrow. surgery is planned for wednesday. ice and elevate. motrin with food Prescriptions: Hydrocodone/Acetaminophen [[place] 5-325 Tablet] 1 each PO Q6HR #10 tablet Referrals: Leopoldo Bruno [DOCTOR OF OSTEOPATH] - Forms: Patient Portal Access Quality - Quality Measures Quality Measures: N/A - Blood Pressure Screening Does Patient Have Any of the Following: No Blood Pressure Classification: Pre-Hypertensive BP Reading Systolic Measurement: 126 Diastolic Measurement: 87 Screening for High Blood Pressure: < Pre-Hypertensive BP, F/U Documented > [G8950] Pre-Hypertensive Follow-up Interventions: Follow-up with rescreen every year.
--- NOTE | 2018-09-15 21:50 | RADIOLOGY REPORT ---
EXAM: WRIST, LEFT 3 VIEWS HISTORY: PATIENT SLIPPED AND FELL. HYPEREXTENSION INJURY OF THE LEFT WRIST. TECHNIQUE: Three views left wrist. COMPARISON: None. FINDINGS: There is a comminuted nondisplaced fracture of the distal radius involving the articular surface. There is a step-off deformity of the articular surface of the radius. Small avulsion fracture of the ulnar styloid process that is minimally displaced. Carpal bones appear intact. No dislocation. Joint spacing is preserved. IMPRESSION: NONDISPLACED COMMINUTED FRACTURE OF THE DISTAL RADIUS WITH MINIMALLY DISPLACED ULNAR STYLOID PROCESS AVULSION FRACTURE. JOB NUMBER: [id number] [facility]
== END 2018-09-14 22:56 | disposition home or self-care (01) ==
LOC: ER 20:53
DX: S52.532A Colles' fracture of left radius, initial encounter for closed fracture (principal); W01.0XXA Fall on same level from slipping, tripping and stumbling without subsequent striking against object, initial encounter; Y93.9 Activity, unspecified; Y92.9 Unspecified place or not applicable; Y99.9 Unspecified external cause status
CPT/HCPCS: 99283

== ENCOUNTER 2018-09-20 09:59 | Day surgery (SDC) | payer BC ==
[2018-09-19 09:58] LABS: ABSOLUTE NEUTROPHIL COUNT 4.95; BASO % 0.4 % (0-6); EOS % 1.7 % (0-6); GRAN % 69.2 % (47-80); HEMATOCRIT 47.3 % (42.0-52.0); HEMOGLOBIN 15.7 gm/dl (14.0-18.0); LYMPH % 19.9 % (16-45); MEAN CELL VOLUME 87.4 fl (81-97); MEAN CORPUSCULAR HGB CONC 33.2 g/dl (32-36); MEAN PLATELET VOLUME 9.5 fl (7.4-10.4); MONO % 8.8 % (0-9); PLATELET COUNT 334 K/uL (130-400); RED BLOOD COUNT 5.41 M/uL (4.40-5.70); RED CELL DISTRIBUTION WIDTH 13.5 % (11.5-14.5); WHITE BLOOD COUNT W/O DIFF 7.2 K/uL (4.2-12.2)
[~2018-09-20 09:59] MED LIST: ACETAMINOPHEN 1,000 MG/100 ML BTL IVPB ONE
[2018-09-20] MEDS ORDERED: SEVOFLURANE 250 ML INH ONE (10:00)
[2018-09-20] MEDS ORDERED: ACETAMINOPHEN 1,000 MG/100 ML BTL IV ONE (10:00)
[2018-09-20] MEDS ORDERED: DEXAMETHASONE 4 MG/ML 1ML VIAL IVP ONE (10:00)
[2018-09-20] MEDS ORDERED: MIDAZOLAM HCL 2MG/2ML VIAL IV ONE (10:00)
[2018-09-20] MEDS ORDERED: LIDOCAINE 2% MDV (20MG/ML) 20ML VIAL IV ONE (10:00)
[2018-09-20] MEDS ORDERED: FLUMAZENIL 1MG/10ML VIAL IV ONE (10:00)
[2018-09-20] MEDS ORDERED: PROPOFOL 10 MG/ML VIAL IV ONE (10:00)
[2018-09-20] MEDS ORDERED: ROPIVACAINE HCL (NAROPIN) /PF 5MG/ML 20ML VIAL IV ONE ×2 (10:00)
[2018-09-20] MEDS ORDERED: RINGERS SOLUTION,LACTATED 1,000 ML IV ONE ×2 (10:30→12:10)
[2018-09-20] MEDS ORDERED: CEFAZOLIN 2 Gram 2 GM/50 ML BAG IVPB ONE (11:17)
--- NOTE | 2018-09-22 08:11 | Operative Note ---
DATE OF SURGERY: 09/20/2018 SURGEON: Leopoldo Rivera DO PREOPERATIVE DIAGNOSIS: Comminuted displaced fracture of the left distal radius. POSTOPERATIVE DIAGNOSIS: Comminuted displaced fracture of the left distal radius. OPERATION: Closed reduction and percutaneous pinning of left distal radius. DESCRIPTION OF PROCEDURE: This 57-year-old male was taken to the operating room and placed in the supine position on the operating room table. General anesthetic was administered and actually, a block anesthesia was also administered for postoperative pain control. The left upper extremity was prepped with Hibiclens and draped in the usual sterile fashion. The operative procedure was begun once the C-arm intensifier was brought into the operative field, and closed manipulation of the fracture was accomplished. The image intensifier was used to confirm position and alignment of the fracture fragments which was seen to be nearly anatomically reduced. We then prepped the wrist with Hibiclens and draped in the usual sterile fashion. With the image intensifier draped in the usual sterile fashion, the left wrist was again brought under the view of the image intensifier, and the fracture was manipulated into near anatomic position. Three K-wires; two 0.54 and one 0.62 K- wires were advanced across the radial styloid and into the body of the radius stabilizing the fracture. The AP and lateral projections showed satisfactory realignment of the fracture. The wounds were cleansed and irrigated. The pins bent over and caps were applied as well. Sterile dressings applied with plaster of splint immobilization with the wrist in slight palmar flexion. The patient was then taken to the recovery room in satisfactory condition. GROSS PATHOLOGY: This patient demonstrated a comminuted intraarticular fracture of the distal radius and ulna, and the fracture was manipulated to near anatomic alignment. It was felt to be satisfactory, and the pins holding the fracture in the reduced position. [facility]
== END 2018-09-20 13:34 | disposition home or self-care (01) ==
LOC: SUR 09:59
PROVIDERS: ATTEND Orthopaedic Surgery
DX: S52.512A Displaced fracture of left radial styloid process, initial encounter for closed fracture (principal); S52.692A Other fracture of lower end of left ulna, initial encounter for closed fracture; G03.9 Meningitis, unspecified
CPT/HCPCS: 76942; 85025; J7120